=== PATIENT | male | born 1950 | race African-American/Black ===

== ENCOUNTER 2017-03-19 19:12 | Emergency (ER) | payer SELFPAY ==
[~2017-03-19] VITALS: Ht 185.4 cm; Wt 113.4 kg
--- NOTE | 2017-03-19 19:18 | NUR ---
TO BED 6 A 66 YO MALE PATIENT BIBRA 89 FROM RESIDENTIAL FOR WITNESSED "FOCAL SEIZURE X 3 MINS" WAS GIVEN 5MG DILANTIN PER RESIDENTIAL SUBWAY CAR REPAIRER. FIELD BS 94. UPON ARRIVAL, PT IS AOX3. VSS. NAD NOTED. BREATHING EVEN AND UNLABORED. SKIN WARM AND DRY. PLACED ON CARDIAC AND VS MONITORING. GOWNED. SAFETY/SEIZURE PRECAUTIONS IN PLACE.
--- NOTE | 2017-03-19 19:25 | NUR ---
DR GEORGE AT BEDSIDE TO EVALUATE PATIENT.
--- NOTE | 2017-03-19 19:40 | NUR ---
FUR FINISHER TAILOR AT BEDSIDE TO DRAW BLOOD.
[2017-03-19] MEDS ORDERED: PHENYTOIN EXTENDED RELEASE 100 MG CAPSULE PO ONE ×3 (20:59→21:27)
--- NOTE | 2017-03-19 21:41 | NUR ---
Patient discharged to home in stable condition. Written and verbal after care instructions given. Patient verbalizes understanding of instruction. Patient is ambulatory with steady gait. Instructed patient not to drive. vss. nad noted. No further complaints.
[2017-03-19 21:42] VITALS: BP 138/74
== END 2017-03-19 21:42 | disposition home or self-care (01) ==
LOC: ER 19:15
DX: R56.9 Unspecified convulsions (principal); R79.1 Abnormal coagulation profile; I10 Essential (primary) hypertension; E11.9 Type 2 diabetes mellitus without complications; Z60.2 Problems related to living alone
CPT/HCPCS: 36415; 80184; 80185; 99284; A4606; Z7610